=== PATIENT | female | born 2005 | race Two or more races ===

== ENCOUNTER → 2024-10-26 | Outpatient (BNVA) | payer SELFPAY | END | disposition home or self-care (01) | PROVIDERS: PCP Nurse Practitioner Family; Referring Provider Nurse Practitioner Family; Visit Provider Nurse Practitioner Family | DX: J20.9 Acute bronchitis, unspecified (principal) | CPT/HCPCS: 87804; 99214 ==

== ENCOUNTER → 2025-08-27 | Outpatient (BNVA) | payer SELFPAY | END | disposition home or self-care (01) | PROVIDERS: PCP Nurse Practitioner Family; Referring Provider Nurse Practitioner Family; Visit Provider Nurse Practitioner Family | DX: J20.9 Acute bronchitis, unspecified (principal); Z28.21 Immunization not carried out because of patient refusal | CPT/HCPCS: 87804; 87811; 99213 ==